=== PATIENT | male | born 1965 | race Caucasian/White ===

== ENCOUNTER 2017-12-29 05:58 | Day surgery (SDC) | payer OTHER ==
[2017-12-27 12:58] VITALS: BMI 30.1
[2017-12-29] MEDS ORDERED: CEFAZOLIN/Water 2 GM/20 ML SYRINGE ONE (06:09)
[2017-12-29 06:23] LABS: #Basophils 0.1 thou/uL (0.0-0.2); #Eosinphils 0.6 thou/uL (0.0-0.7); #Lymphocytes 2.6 thou/uL (1.20-3.40); #Monocytes 0.7 thou/uL (0.11-0.59); #Neutrophils 3.7 thou/uL (1.40-6.50); %Eosinophils 7.5 % (0.0-10.0); %Lymphocytes 33.9 % (21.0-51.0); %Monocytes 8.9 % (0.0-10.0); %Neutrophils 48.6 % (42.0-75.0); Hemoglobin 14.3 g/dL (14.0-18.0); Mean Corpuscular HGB CONC 33.6 g/dL (32.0-36.0); Mean Corpuscular Hemoglobin 29.3 pg (27.0-31.0); Mean Corpuscular Volume 87.2 fl (80.0-94.0); Platelet Count 200 thou/uL (130-400); RBC Distribution Width 12.4 % (11.5-14.5); Red Blood Cell (RBC) Count 4.87 mill/uL (4.70-6.10); White Blood Cell (WBC) Count 7.6 thou/uL (4.8-10.8)
[2017-12-29] MEDS ORDERED: Fentanyl 100 MCG/2 ML VIAL ONE ×2 (06:48→07:00)
[2017-12-29 06:49] LABS: PTT 33.1 SEC (22.9-36.1); Prothrombin Time 13.5 SEC (12.0-14.7)
[2017-12-29 06:54] LABS: Anion Gap 10 mmol/L (10-20); BUN (Urea Nitrogen) 15 mg/dL (8.4-25.7); Calc. Creatinine Clearance 137 mL/min (70-130); Calcium 9.3 mg/dL (7.8-10.44); Carbon Dioxide 27 mmol/L (22-29); Chloride 105 mmol/L (98-107); Estimated GFR-MDRD Greater than 90; Glucose 100 mg/dL (70-105); Potassium 4.3 mmol/L (3.5-5.1); Sodium 138 mmol/L (136-145)
[2017-12-29] MEDS ORDERED: Midazolam HCl 2 mg/2 ml Vial ONE (07:00)
[2017-12-29] MEDS ORDERED: Bupivacaine 0.25% HCL 30 ML VIAL ONE (08:27)
[2017-12-29] MEDS ORDERED: HYDROcodone/Acetaminophen 5/325 mg Tablet ONE (11:34)
--- NOTE | 2017-12-29 14:14 | OP ---
DATE OF PROCEDURE: 12/29/2017 PREOPERATIVE DIAGNOSIS: Left spermatocele microscopic hematuria. POSTOPERATIVE DIAGNOSIS: Left spermatocele microscopic hematuria. PROCEDURE PERFORMED: Cysto, left spermatocelectomy. SURGEON: Pablo Veronica M.D. ANESTHETIC: General with local. ESTIMATED BLOOD LOSS: Minimal. DRAINS: None. PATH SENT: Left spermatocele. FINDINGS: There was no evidence of urethral stricture or abnormality, mildly to moderately enlarged lateral lobes of the prostate, 2 ureteral orifices with clear efflux. No evidence of bladder tumor, foreign body, or stone. He had a moderate to large left spermatocele attached to the epididymis at t he superior portion. OPERATIVE TECHNIQUE: After obtaining written and verbal consent from the patient after receiving IV Ancef, he was taken to the operating suite. He was placed in supine position on the treatment table. PlexiPulses were placed on his lower extremities. He was given general anesthetic, oral obturator intubation. His scrotum was shaved and then he was sterilely prepped and draped. Through flexible c ystoscopy, the flexible cystoscope was passed under direct vision with the aid of a video camera and monitor through the male urethra into the urinary bladder. The bladder was examined in all areas wit h the above findings were removed. A 14-Wolof red rubber catheter was placed and his bladder was drained, filled, and emptied. Catheter was removed. He was then reprepped and draped for sperma tocelectomy. He had a lower midline incision made along the median rhaphe and taken into the left he miscrotum and down to the region of the spermatocele, which was sitting above the testicle. It was e asier to get to this because of the cord structures by opening up the tunica vaginalis and then comin g from this region, so we opened up the tunica vaginalis, delivered the testicle and spermatocele, wh ich were all intervaginal through this incision. We opened up the visceral peritoneum covering the s permatocele and dissected the spermatocele off of this covering and down to where it attached to the head of the epididymis. This region where it was attaching, was oversewed with 5-0 Vicryl and then t he spermatocele was removed and sent off. We irrigated this area out, obtained hemostasis with the n eedle electrode for the bipolar unit. We reapproximated the visceral peritoneum with some 5-0 chromi cs. We replaced the testicle back inside the tunica vaginalis and reapproximated this edge with some 3-0 chromics. We irrigated out again and then passed about 10 mL of 0.25% Marcaine without epinephr ine for anesthetic in the scrotum. We then closed the skin in 2 layers with 3-0 chromic, figure-of-e ights on the dartos layer and U stitches in the skin. Fluffs and web panties were placed. The patie nt was awakened, extubated, and taken by stretcher to the recovery room.
[2017-12-29] MEDS ORDERED: Lidocaine 1% PF 5 ML VIAL ONE (15:23)
[2017-12-29] MEDS ORDERED: Ondansetron HCl/PF 4 MG/2 ML Vial ONE (15:23)
[2017-12-29] MEDS ORDERED: Propofol 200 MG/20 ML VIAL ONE (15:23)
[2017-12-29] MEDS ORDERED: Dexamethasone 20 MG/5 ML VIAL ONE (15:23)
== END 2017-12-29 11:40 | disposition home or self-care (01) ==
LOC: SDC 05:58
PROVIDERS: ATTEND Urology
PROC: 0VBK0ZZ Excision of Left Epididymis, Open Approach (ICD-10-PCS; principal; 2017-12-29)
DX: N43.41 Spermatocele of epididymis, single (principal); R31.21 Asymptomatic microscopic hematuria; Z88.2 Allergy status to sulfonamides; Z88.8 Allergy status to other drugs, medicaments and biological substances; Z98.52 Vasectomy status
CPT/HCPCS: 36415; 80048; 85025; 85610; 85730; 88304; J1100; J2001; J2250; J2405; J2704; J3010; S0020